=== PATIENT | female | born 1960 | race Caucasian/White ===

== ENCOUNTER 2020-05-22 23:53 | Emergency (ER) | payer OTHER, SELFPAY ==
[2020-05-22 23:55] VITALS: BP 120/76; PULSE 93; RESP 19; TEMP 36.7; O2SAT 100
--- NOTE | 2020-05-23 00:34 | ECG_ITS ---
Measurements Intervals [place] Rate: 89 P: 51 VT: 151 QRS: 54 QRSD: 69 T: 44 QT: 325 QTc: 397 Interpretive Statements SINUS RHYTHM BORDERLINE ST ABNORMALITY- ANT/INF LEADS BASELINE ARTIFACT- I, II, AVR, AVL BORDERLINE ECG Electronically Signed On 05-23-2020 11:50:25 CDT by Memo Barlow D.O.
[2020-05-23] MEDS: KETOROLAC 30 MG/ML VIAL (*BKC) IV PUSH (00:47)
[2020-05-23 01:04] LABS: Basophils Percent Auto 0.4 % (0.2-1.2); Eosinophils Absolute Auto 0.1 K/mm3 (0-0.3); Eosinophils Percent Auto 0.6 % (0-4.4); Hematocrit 36.2 % (37.0-47.0); Hemoglobin 12.2 g/dL (12.0-15.0); Immature Granulocyte Absolute 0.02 K/mm3 (0.00-0.031); Immature Granulocyte Percent A 0.2 % (0-0.5); Lymphocytes Absolute Auto 2.88 K/mm3 (0.9-3.2); Lymphocytes Percent Auto 35.6 % (18.3-44.2); Mean Corpuscular HGB Conc 33.7 g/dl (32-36); Mean Corpuscular Volume 92.1 fl (80-100); Mean Platelet Volume 9.1 fl (7.4-10.4); Monocytes Absolute Auto 0.5 K/mm3 (0.1-0.6); Monocytes Percent Auto 6.4 % (2.6-8.5); Neutrophils Absolute Auto 4.6 K/mm3 (1.3-6.7); Neutrophils Percent Auto 56.8 % (45.5-73.1); Platelet Count Result 254 k/mm3 (150-375); Red Blood Count 3.93 M/mm3 (4.2-5.4); Red Cell Distribution Width 12.2 % (11.5-14.5); White Blood Count 8.1 K/mm3 (4.5-10.0)
[2020-05-23 01:16] LABS: Alanine Aminotransferase 40 U/L (4-35); Albumin Level 4.2 g/dL (3.5-5.1); Alkaline Phosphatase 103 U/L (38-126); Aspartate Amino Transferase 55 U/L (14-36); Bilirubin,Total 0.2 mg/dL (0.2-1.3); Blood Urea Nitrogen 15 mg/dL (7-17); Calcium 9.2 mg/dL (8.4-10.2); Carbon Dioxide 26 mmol/L (22-30); Chloride 107 mmol/L (98-107); Estimated Glomerular Filt Rate > 60; Glucose 125 mg/dL (65-105); Lipase 125 U/L (23-300); Potassium 3.5 mmol/L (3.4-5.0); Sodium 138 mmol/L (137-145)
--- NOTE | 2020-05-23 01:38 | ED.ANXIETY ---
HPI - Anxiety General Chief Complaint: Anxiety Stated Complaint: abd pain/ CP Time Seen by Provider: 05/23/20 00:16 History of Present Illness HPI narrative: Patient is a 59-year-old female who presents ER with abdominal pain and anxiousness. Patient reports she is at work at the [employer] when a work cart struck a metal grate and created a loud banging sound. This caused her to be exceedingly scared and collapsed to the ground. She then was short of breath and anxious afterwards having intermittent weakness and numbness and tingling in her arms. She then became sick and vomited is feeling some epigastric rebound discomfort that is worse with bending forward. Patient had an exaggerated reaction to this loud noise because 1 week ago at work a pipe it exploded that she was 3 feet away from but was fortunate enough to not be injured. Related Data Home Medications Medication Instructions Recorded Confirmed levothyroxine [Synthroid] 25 mcg PO DAILY 05/23/20 zolpidem [Ambien] 05/23/20 Allergies Allergy/AdvReac Type Severity Reaction Status Date / Time No Known Allergies Allergy Verified 05/23/20 00:00 Review of Systems Review of Systems: All systems reviewed & are unremarkable except as noted in HPI and below Constitutional: Constitutional: Denies chills, Reports fatigue and Denies fever(s) ENT: Denies nasal congestion and Denies sore throat Cardiovascular: Cardiovascular: Denies chest pain, Denies rapid heart rate and Denies radiating jaw, neck or arm pain Respiratory: Respiratory: Denies cough, Reports dyspnea and Denies wheezing Gastrointestinal: Gastrointestinal: Reports abdominal pain, Denies diarrhea, Reports nausea and Reports vomiting Psychiatric: Psychiatric: Reports anxiety and Denies depression PMFSH Past Medical History Medical History (Updated 05/23/20 @ 02:50 by Zaire Kennedy MD) Depression Hypothyroidism Presence of pancreatic duct stent Surgical History Surgical History (Updated 05/23/20 @ 01:43 by Zaire Kennedy MD) H/O breast augmentation History of cholecystectomy Family History Family History (Updated 10/28/12 @ 10:10 by DOCTOR UNKNOWN) Other Hypertension Social History Social History Smoking status: Never smoker Alcohol intake: current Gender identity (if verbalized by the patient): Female Exam Narrative: Exam Narrative: GENERAL: Well-appearing, well-nourished, and in no acute distress. HEAD: Normocephalic, atraumatic. ENT: Mucous membranes moist. CHEST: Clear to auscultation. No respiratory distress. HEART: Regular rate and rhythm. Normal peripheral pulses. ABDOMEN: Soft, mild diffuse tenderness, nondistended, normal active bowel sounds. EXTREMITIES: Normal range of motion. No edema. SKIN: Warm, dry, no rash. NEURO: Alert and oriented x3. PSYCH: Normal mood and affect but reports anxiousness. Course Vital Signs Vital signs: Vital Signs Temperature 98.1 F 05/22/20 23:55 Pulse Rate 93 05/22/20 23:55 Respiratory Rate 19 05/22/20 23:55 Blood Pressure 120/76 05/22/20 23:55 Pulse Oximetry 100 05/22/20 23:55 Temperature 98.1 F 05/22/20 23:55 Pulse Rate 84 05/23/20 02:01 Respiratory Rate 17 05/23/20 02:01 Blood Pressure 102/73 05/23/20 02:01 Pulse Oximetry 99 05/23/20 02:01 MDM - Anxiety Lab Data Result diagrams: 05/23/20 00:57 05/23/20 00:57 Labs: Lab Results 05/23/20 05/23/20 Range/Units 00:57 00:57 WBC 8.1 (4.5-10.0) K/mm3 RBC 3.93 L (4.2-5.4) M/mm3 Hgb 12.2 (12.0-15.0) g/dL Hct 36.2 L (37.0-47.0) % MCV 92.1 (80-100) fl MCH 31.0 (26-34) pg MCHC 33.7 (32-36) g/dl RDW 12.2 (11.5-14.5) % Plt Count 254 (150-375) k/mm3 MPV 9.1 (7.4-10.4) fl Immature Gran % (Auto) 0.2 (0-0.5) % Neut % (Auto) 56.8 (45.5-73.1) % Lymph % (Auto) 35.6 (18.3-44.2) % [place] % (Auto) 6.4 (2.6-8.5) % Eos % (Auto) 0.6 (0-4.4
[2020-05-23 02:01] VITALS: BP 102/73; PULSE 84; RESP 17; O2SAT 99
[2020-05-23 03:06] VITALS: BP 99/76; PULSE 78; RESP 13; O2SAT 99
== END 2020-05-23 03:09 | disposition home or self-care (01) ==
PROVIDERS: Emergency Provider Emergency Medicine; PCP Physician Assistant
DX: F41.9 Anxiety disorder, unspecified (principal); S39.011A Strain of muscle, fascia and tendon of abdomen, initial encounter; E03.9 Hypothyroidism, unspecified; F32.9 Major depressive disorder, single episode, unspecified; R94.31 Abnormal electrocardiogram [ECG] [EKG]; W18.39XA Other fall on same level, initial encounter
CPT/HCPCS: 36415; 80053; 83690; 85025; 93005; 96374; 99284; J1885

== ENCOUNTER → 2020-11-02 12:22 | Outpatient (CLI) | payer OTHER, SELFPAY ==
--- NOTE | ~2020-11-02 | MR_ITS ---
EXAMINATION: MR cervical spine wo con DATE: 11/02/2020 13:03 INDICATION: Neck pain. TECHNIQUE: Magnetic resonance imaging (MRI) of the cervical spine was performed without intravenous c ontrast. Sequences included sagittal T2-weighted FSE, sagittal STIR FSE, sagittal T1-weighted FSE, ax ial MERGE, and axial T2-weighted FSE. COMPARISON: Cervical spine radiographs 07/01/2016 FINDINGS: Bone alignment is normal. There are changes of anterior fusion procedure from C4 to C7 with anterior plate and screws. Vertebral body heights and intervertebral disc heights are normal. The sp inal cord signal intensity is normal. The following disc levels are specifically discussed: C2-C3: The disc does not extend beyond the endplate margin. There is no uncovertebral joint osteoarth ritis. There is mild bilateral facet joint osteoarthritis. There is no neural foraminal stenosis. The re is no central canal stenosis. C3-C4: The disc is bulging. There is mild left uncovertebral joint osteoarthritis. There is mild bila teral facet joint osteoarthritis. There is mild left neural foraminal stenosis. There is mild central canal stenosis. C4-C5: There is mild bilateral uncovertebral joint hypertrophy. There is mild right facet joint osteo arthritis. There is no neural foraminal stenosis. There is no central canal stenosis. C5-C6: There is no uncovertebral joint hypertrophy. There is no facet joint osteoarthritis. There is no neural foraminal stenosis. There is no central canal stenosis. C6-C7: There is moderate bilateral uncovertebral joint hypertrophy. There is mild bilateral facet dvaid nt osteoarthritis. There is moderate right and mild left neural foraminal stenosis. There is no centr al canal stenosis. C7-T1: The disc does not extend beyond the endplate margin. There is no uncovertebral joint osteoarth ritis. There is mild bilateral facet joint osteoarthritis. There is mild bilateral neural foraminal s tenosis. There is no central canal stenosis. IMPRESSION: 1. Mild cervical spondylosis. 2. Anterior fusion procedure from C4 to C7. Reviewed, dictated and finalized at location A. [employer] INSPECTOR
== END ==
PROVIDERS: Visit Provider Physician Assistant
DX: M50.20 Other cervical disc displacement, unspecified cervical region (principal); M47.892 Other spondylosis, cervical region; Z98.1 Arthrodesis status
CPT/HCPCS: 72141

== ENCOUNTER → 2021-01-24 12:28 | Outpatient (CLI) | payer OTHER, SELFPAY ==
--- NOTE | ~2021-01-24 | MM_ITS ---
EXAMINATION: MM scrn jose implant BI w nanette HISTORY: Screening mammogram TECHNIQUE: Craniocaudal and mediolateral oblique 3-D tomosynthesis images with implant displacement a nd synthetic 2-D images were generated. Craniocaudal and mediolateral oblique views of the breasts wi thout implant displacement were obtained using full field digital mammography. CAD analysis was submi tted and interpreted. COMPARISON: 11/15/2017 bilateral digital screening mammogram BREAST PARENCHYMAL COMPOSITION: The breasts are heterogeneously dense, which may obscure small masses . FINDINGS: Status post bilateral augmentation mammoplasty. There is no evidence of suspicious mass, calcification, or architectural distortion to suggest malign jak in either breast. There has been no suspicious interval change. IMPRESSION: 1. No mammographic evidence of malignancy. 2. Recommend routine screening mammography in one year. BI-RADS Category 1: Negative Reviewed, dictated and finalized at location A. [employer]OR OF EVENT MANAGEMENT
== END ==
PROVIDERS: PCP Physician Assistant; Visit Provider Physician Assistant
DX: Z12.31 Encounter for screening mammogram for malignant neoplasm of breast (principal)
CPT/HCPCS: 77063; 77067

== ENCOUNTER 2021-03-02 02:18 | Emergency (ER) | payer OTHER, SELFPAY ==
[2021-03-02] VITALS (7 sets, daily range): BP systolic 101–160; BP diastolic 73–92; PULSE 81–99; RESP 12–20; TEMP 36.6–36.9; O2SAT 96–100
--- NOTE | ~2021-03-02 | CT_ITS ---
EXAMINATION: CTA chest PE protocol EXAM DATE: 03/02/2021 05:25 INDICATION: Shortness of breath. TECHNIQUE: Spiral CTA of the chest (pulmonary arteries) was performed with 100 cc Omnipaque 350 intr avenous contrast injection. Images were acquired during the pulmonary arterial phase. Coronal maxi mum intensity projection 3D-reconstructions were created by the technologist on dedicated workstation . Axial, coronal and sagittal reformatted images were reviewed. The dose-length product (DLP) for t his examination was 142.72 mGy-cm. The exposure was tailored according to patient size (auto mA exp osure control), and iterative reconstruction (ASIR) was used as additional dose reduction technique. There is no prior study for comparison. FINDINGS: Pulmonary arteries are well opacified and without intraluminal filling defects. No thora cic aortic dissection. The lungs are clear. There are no pleural or pericardial effusions. Trach eobronchial tree is patent. There is no mediastinal, hilar or axillary lymphadenopathy. There is no pneumothorax. Heart normal in size. No evidence of coronary arterial calcification. There is a 2.5 cm hypodensity in the right liver lobe, segment 7, a nonspecific liver lesion. There is mild t horacic spondylosis without osteoblastic or osteolytic lesions identified. Breast implants. IMPRESSION: 1. No pulmonary emboli or acute cardiopulmonary findings. 2. Incidental nonspecific right liver lobe lesion, could be hemangioma, adenoma, or malignancy. Abdo men MRI without and with contrast is recommended for further evaluation. I discussed the incidental liver lesion, recommendation with emergency room Dr. Love at 03/02/2021 0 7:29 CDT. Reviewed, dictated and finalized at location A. IMPRESSION: 1. No pulmonary emboli or acute cardiopulmonary findings. 2. Incidental nonspecific right liver lobe lesion, could be hemangioma, adenom a, or malignancy. Abdomen MRI without and with contrast is recommended for furt her evaluation. I discussed the incidental liver lesion, recommendation with emergency room Dr. Love at 03/02/2021 07:29 CDT.
--- NOTE | ~2021-03-02 | XR_ITS ---
EXAMINATION: XR chest 1V portable EXAM DATE: 03/02/2021 02:46 INDICATION: Shortness of breath. TECHNIQUE: Portable AP frontal chest x-ray was obtained. Comparison is made to prior examination from 08/03/2012. FINDINGS: The lungs are clear. There are no pleural effusions. The cardiomediastinal silhouette is within normal limits. There is no pneumothorax suspected. Mild thoracic spondylosis. Lower cervical fusion hardware. IMPRESSION: No acute cardiopulmonary findings. Reviewed, dictated and finalized at location A.
--- NOTE | 2021-03-02 02:20 | ECG_ITS ---
Measurements Intervals [place] Rate: 81 P: 75 MS: 137 QRS: 72 QRSD: 76 T: 23 QT: 373 QTc: 435 Interpretive Statements SINUS RHYTHM NONSPECIFIC ST & T-WAVE ABNORMALITY- INF/HIGH LAT LEADS BASELINE ARTIFACT- I, II, III, AVR, AVL, AVF, V1-V6 BORDERLINE ECG Electronically Signed On 03-02-2021 8:34:47 CDT by Memo Barlow D.O.
--- NOTE | 2021-03-02 02:28 | PC.NURSE ---
Pt presents to ED with complaints of sob since for the past 24 hours. Breathing noted to be even and unlabored with O2 saturation of 100% on room air. Pt states she has pressure midsternum. Pt states she has a hx of anxiety and sometimes I get short of breath but this is not the same . Pt denies hx of respiratory diseases and recent illness. Pt noted with dry cough but states she keeps coughing because she can not breathe. Pt alert and oriented x4. Vitals are stable and pt in no obvious distress. Family presented to bedside.
--- NOTE | 2021-03-02 02:31 | PC.NURSE ---
EDMD presented to bedside. Pt states I have three plates in my neck and I feel like my air is getting cut off .
[2021-03-02] MEDS: LORazepam INJ (*CRX) 2 MG/ML VIAL 1 MG IV PUSH (02:44)
[2021-03-02] MEDS: NITROGLYCERIN SL 0.4 MG TABLET SUBLINGUAL (02:45)
[2021-03-02] MEDS: ALBUTEROL SULFATE (*SP) INHALER 2 PUFF INHALATION (02:49)
[2021-03-02 03:14] LABS: Basophils Absolute Auto 0.1 K/mm3 (0.0-0.1); Basophils Percent Auto 0.6 % (0.2-1.2); Eosinophils Absolute Auto 0.2 K/mm3 (0-0.3); Eosinophils Percent Auto 2.3 % (0-4.4); Hematocrit 39.2 % (37.0-47.0); Hemoglobin 13.1 g/dL (12.0-15.0); Immature Granulocyte Absolute 0.02 K/mm3 (0.00-0.031); Immature Granulocyte Percent A 0.2 % (0-0.5); Lymphocytes Absolute Auto 4.02 K/mm3 (0.9-3.2); Lymphocytes Percent Auto 43.1 % (18.3-44.2); Mean Corpuscular HGB Conc 33.4 g/dl (32-36); Mean Corpuscular Hemoglobin 30.5 pg (26-34); Mean Corpuscular Volume 91.4 fl (80-100); Mean Platelet Volume 9.5 fl (7.4-10.4); Monocytes Absolute Auto 0.7 K/mm3 (0.1-0.6); Monocytes Percent Auto 7.2 % (2.6-8.5); Neutrophils Absolute Auto 4.3 K/mm3 (1.3-6.7); Neutrophils Percent Auto 46.6 % (45.5-73.1); Platelet Count Result 296 k/mm3 (150-375); Red Blood Count 4.29 M/mm3 (4.2-5.4); Red Cell Distribution Width 12.1 % (11.5-14.5); White Blood Count 9.3 K/mm3 (4.5-10.0)
--- NOTE | 2021-03-02 03:20 | PC.NURSE ---
Pt noted to be more relaxed since medication administration. Pt now complaining of headache and lightheadedness. Pt states heaviness persists and it is in her throat. Vitals are stable and in pt in non obvious distress.
--- NOTE | 2021-03-02 03:20 | ED.GENADULT ---
HPI - General Adult General Chief complaint: Shortness of Breath/Dyspnea Stated complaint: Shortness of breath Time Seen by Provider: 03/02/21 02:24 History of Present Illness HPI narrative: Patient 60-year-old female presents to emergency department chief complaint of shortness of breath. Patient reports that she has had prior history of a cervical fusion and reports that she also has history of anxiety patient reports tonight she started feeling as though there was a a fullness in her neck and her chest. Patient states it feels as though she cannot get a good deep breath. Patient denies prior history of cardiac disease. Related Data Allergies Allergy/AdvReac Type Severity Reaction Status Date / Time amoxicillin [From Augmentin] Allergy Rash Verified 03/02/21 02:42 clavulanic acid Allergy Rash Verified 03/02/21 02:42 [From Augmentin] Review of Systems Review of Systems: Narrative: A 10 system review of systems was completed on the patient and is negative except for what is stated in the HPI. Nursing and ancillary documentation was reviewed. PMFSH Comments Past medical history significant for anxiety Past surgical history significant for ACDF Social history the patient denies smoking or illicit drug use Exam Narrative: Exam Narrative: GENERAL: Well-appearing, well-nourished, and in no acute distress. HEAD: Normocephalic, atraumatic. EYES: PERRLA and EOMI. ENT: Nares clear, no rhinorrhea or epistaxis. Mucous membranes moist. NECK: Supple. CHEST: Clear to auscultation. No respiratory distress. HEART: Regular rate and rhythm. No murmur heard. Normal peripheral pulses. ABDOMEN: Soft, nontender, nondistended, normal active bowel sounds. EXTREMITIES: Normal range of motion. No edema. SKIN: Warm, dry, no rash. NEURO: No focal deficits. Alert and oriented x3. PSYCH: Normal mood and affect. Course Vital Signs Vital signs: Vital Signs Pulse Rate 83 03/02/21 02:21 Respiratory Rate 14 03/02/21 02:21 Pulse Oximetry 100 03/02/21 02:21 Temperature 36.9 C 03/02/21 02:26 Pulse Rate 87 03/02/21 06:23 Respiratory Rate 20 03/02/21 06:23 Blood Pressure 108/77 03/02/21 06:23 Pulse Oximetry 99 03/02/21 06:23 Medical Decision Making Vital Signs Vital Signs: Vital Signs Pulse Rate 83 03/02/21 02:21 Respiratory Rate 14 03/02/21 02:21 Pulse Oximetry 100 03/02/21 02:21 Temperature 36.9 C 03/02/21 02:26 Pulse Rate 87 03/02/21 06:23 Respiratory Rate 20 03/02/21 06:23 Blood Pressure 108/77 03/02/21 06:23 Pulse Oximetry 99 03/02/21 06:23 Lab Data Result diagrams: 03/02/21 02:41 03/02/21 02:41 Labs: Lab Results 03/02/21 03/02/21 03/02/21 Range/Units 02:41 02:41 02:46 WBC 9.3 (4.5-10.0) K/mm3 RBC 4.29 (4.2-5.4) M/mm3 Hgb 13.1 (12.0-15.0) g/dL Hct 39.2 (37.0-47.0) % MCV 91.4 (80-100) fl MCH 30.5 (26-34) pg MCHC 33.4 (32-36) g/dl RDW 12.1 (11.5-14.5) % Plt Count 296 (150-375) k/mm3 MPV 9.5 (7.4-10.4) fl Immature Gran % (Auto) 0.2 (0-0.5) % Neut % (Auto) 46.6 (45.5-73.1) % Lymph % (Auto) 43.1 (18.3-44.2) % [place] % (Auto) 7.2 (2.6-8.5) % Eos % (Auto) 2.3 (0-4.4) % Baso % (Auto) 0.6 (0.2-1.2) % Lymph # (Auto) 4.02 H (0.9-3.2) K/mm3 [place] # (Auto) 0.7 H (0.1-0.6) K/mm3 Eos # (Auto) 0.2 (0-0.3) K/mm3 Baso # (Auto) 0.1 (0.0-0.1) K/mm3 Abs Immat Gran (auto) 0.02 (0.00-0.031) K/mm3 Absolute Neuts (auto) 4.3 (1.3-6.7) K/mm3 Absolute Nucleated RBC 0.0 (0.0-0.012) K/mm3 Nucleated RBC % 0.0 (0.0-0.2) % PT (11.1-14.7) Seconds INR APTT (22.3-36.8) SECONDS D-Dimer (<0.48) ug/mL Sodium 141 (137-145) mmol/L Potassium 3.2 L (3.4-5.0) mmol/L Chloride 104 (98-107) mmol/L Carbon Dioxide 30 (22-30) mmol/L Anion Gap 7 L (8-16) mmol/L BUN 16 (7-17) mg/dL Creatinine 0.70
--- NOTE | 2021-03-02 03:22 | PC.NURSE ---
Family remains at bedside and pt advised to press call button for assistance.
[2021-03-02 03:25] LABS: INR 0.8; Prothrombin Time 11.7 Seconds (11.1-14.7)
[2021-03-02 03:26] LABS: Lactic Acid Reflex 1.3 mmol/L (0.7-2.1); Partial Thromboplastin Time 26.4 SECONDS (22.3-36.8)
[2021-03-02 03:26] LABS: Anion Gap 7 mmol/L (8-16); Blood Urea Nitrogen 16 mg/dL (7-17); Carbon Dioxide 30 mmol/L (22-30); Chloride 104 mmol/L (98-107); Estimated CRCL calculation 60 ml/min; Estimated Glomerular Filt Rate > 60; Glucose 105 mg/dL (65-105); Potassium 3.2 mmol/L (3.4-5.0); Sodium 141 mmol/L (137-145)
[2021-03-02 03:27] LABS: Alanine Aminotransferase 31 U/L (4-35); Albumin Level 4.5 g/dL (3.5-5.1); Alkaline Phosphatase 96 U/L (38-126); Aspartate Amino Transferase 41 U/L (14-36); Bilirubin,Total 0.3 mg/dL (0.2-1.3); Magnesium 1.8 mg/dL (1.6-2.3)
[2021-03-02 03:35] LABS: D Dimer 0.27 ug/mL (<0.48)
[2021-03-02 03:36] LABS: NT Pro B Type Natriuretic Pept 63 PG/ML (5-100)
[2021-03-02] MEDS: methylPREDNISolone SOD SUCC 125 MG VIAL IV PUSH (03:37)
[2021-03-02 03:39] LABS: Troponin I < 0.012 ng/mL (0.000-0.034)
--- NOTE | 2021-03-02 03:45 | PC.NURSE ---
Pt provided another nitro table and pt states chest pain improved. Pt resting on cart in its lowest position with call button and personal items within reach. Vitals remain stable and pt alert and oriented x4. Family remains a bedside. Pt advised to press call button for assistance.
--- NOTE | 2021-03-02 04:08 | PC.NURSE ---
Pt rates discomfort 4/10 at this time. Pt updated on poc and advised that EDMD will present to bedside for further updates. Pt voices her understanding. Advised to press call button for assistance.
--- NOTE | 2021-03-02 05:08 | PC.NURSE ---
EDMD presented to bedside and updated pt and family on poc. Family member left bedside. Pt resting comfortably and vitals are stable. Pt with call button and personal items within reach. Advised to press call button for assistance.
--- NOTE | 2021-03-02 05:13 | PC.NURSE ---
Pt to ct via cart.
[2021-03-02 05:19] LABS: Troponin I < 0.012 ng/mL (0.000-0.034)
--- NOTE | 2021-03-02 05:22 | PC.NURSE ---
Pt returned from CT. Call button and personal items within reach. Advised to press call button for assistance.
--- NOTE | 2021-03-02 06:24 | PC.NURSE ---
Pt ambulatred with this RN with standby assist. educated pt about changing positions slowly - pt verbalized understanding.
--- NOTE | 2021-03-02 06:35 | PC.NURSE ---
EDMD at bedside to update pt on poc and all questions and concerns addressed. Pt advised to call family for transportation home.
== END 2021-03-02 06:40 | disposition home or self-care (01) ==
PROVIDERS: Emergency Provider Emergency Medicine; PCP Physician Assistant
DX: R06.00 Dyspnea, unspecified (principal); Z98.1 Arthrodesis status; K76.9 Liver disease, unspecified; R94.31 Abnormal electrocardiogram [ECG] [EKG]
CPT/HCPCS: 36415; 71045; 71275; 80048; 80076; 83605; 83735; 83880; 84484; 85025; 85380; 85610; 85730; 93005; 94640; 96374; 96375; 99284; A9270; J2060; J2930; Q9967

== ENCOUNTER → 2021-04-18 12:15 | Outpatient (CLI) | payer OTHER, SELFPAY ==
--- NOTE | ~2021-04-18 | DEXA_ITS ---
Bone Density Report Name: Harini Soria Age: 60 Sex: Female Ethnicity: White Date of : 1960 Indication: postmenopausal; screening for osteoporosis; anorexia or bulimia; hysterectomy; Referring Provider: Dee, Garfield Suarez Study: Bone densitometry was performed. Exam Date: April 18, 2021 Accession number: [id number] Bone Density: Region BMD T-score Z-score Classification AP Spine (L1-L4) 1.018 -0.3 1.0 Normal Femoral Neck (Left) 0.673 -1.6 -0.4 Osteopenia Total Hip (Left) 0.928 -0.1 0.8 Normal Femoral Neck (Right) 0.687 -1.5 -0.2 Osteopenia Total Hip (Right) 0.832 -0.9 0.0 Normal Total Hip Mean 0.880 -0.5 0.4 Normal World Health Organization criteria for BMD impression classify patients as: Normal (T-score at or above -1.0), Osteopenia (T-score between -1.0 and -2.5), or Osteoporosis (T-score at or below -2.5). 10-year Fracture Risk(1): Major Osteoporotic Fracture 6.9% Hip Fracture 0.6% Reported Risk Factors: [place] (), Neck BMD=0.673, BMI=20.8 (1) FRAX(R) Version 3.08. Fracture probability calculated for an untreated patient. Fracture probability may be lower if the patient has received treatment. Clinical Information Provided by Patient: Has used the following medications: Vitamin D, Calcium Has the following medical conditions: Anorexia or Bulimia, Hysterectomy Patient maximum height was 62.5 Menopause Age: 44 No regular weight bearing exercise Does not regularly consume dairy products Drinks caffeinated beverages Onset of menses at age 18 Number of children 5 Impression: The patient has low bone mass, based on the Left Femoral Neck T-score. The patient has an estimated ten-year risk of hip fracture of 0.6% and an estimated ten-year risk of major fracture of 6.9%, based on the WHO FRAX algorithm. Discussion: BONE DENSITY IS LOW AT ONE OR MORE SKELETAL SITES. This patient's lowest T-score is low at one or more skeletal sites. It meets the World Health Organization's (WHO) criteria for ?low bone mass? (T-score between -1.0 and -2.5). The patient's 10-year risk of fracture as calculated by FRAX is less than the threshold where pharmacological therapy is recommended by the National Osteoporosis Foundation (NOF). However, all treatment decisions require clinical judgment and consideration of individual patient factors, including patient preferences, comorbidities, previous drug use, risk factors not captured in the FRAX model (e.g., frailty, falls, vitamin D deficiency, increased bone turnover, interval significant decline in bone density) and possible under or overestimation of fracture risk by FRAX. The patient should follow a healthful lifestyle (good nutrition with adequate calcium and vitamin D, and appropriate weight-bearing exercise). Follow-Up: Consider repeating this
== END ==
PROVIDERS: PCP Physician Assistant; Visit Provider Physician Assistant
DX: Z78.0 Asymptomatic menopausal state (principal); M85.89 Other specified disorders of bone density and structure, multiple sites
CPT/HCPCS: 77080

== ENCOUNTER → 2021-04-23 13:11 | Outpatient (CLI) | payer OTHER, SELFPAY ==
--- NOTE | ~2021-04-23 | MR_ITS ---
EXAMINATION: MR abdomen wo/w con DATE: 04/23/2021 14:13 INDICATION: Liver mass. TECHNIQUE: Magnetic resonance imaging (MRI) of the abdomen was performed without and with 10 mL Multi [place] intravenous contrast. Sequences included coronal T2-weighted FS FSE, coronal and axial FS FIEST A, axial T2-weighted FSE, coronal LAVA-flex, axial STIR FSE, axial DWI, axial dual-echo T1-weighted F SPGR, and axial LAVA. Postcontrast sequences included coronal LAVA-flex and a time course of axial LA VA. COMPARISON: Chest CT 03/02/2021 FINDINGS: There are bilateral breast implants. In right hepatic lobe, there is a 2.5 cm mass with interrupted p eripheral puddling of contrast, consistent with a hemangioma. Pancreas divisum is noted. The gallblad genie is absent. The spleen, adrenal glands, and kidneys are normal. There are no dilated loops of benjamin l. There are no pathologically enlarged lymph nodes. There is no free intraperitoneal fluid. IMPRESSION: 1. 2.5 cm hemangioma in the liver correlating with the CT abnormality. Reviewed, dictated and finalized at location A.
[2021-04-23 13:46] LABS: Estimated Glomerular Filt Rate > 60
== END ==
PROVIDERS: Visit Provider Physician Assistant
DX: K76.9 Liver disease, unspecified (principal)
CPT/HCPCS: 74183; A9577

== ENCOUNTER 2022-07-11 15:11 | Outpatient (CLI) | payer OTHER, SELFPAY ==
--- NOTE | ~2022-07-11 | CT_ITS ---
EXAMINATION: CT abdomen pelvis w con INDICATION: Abdominal pain and nausea TECHNIQUE: Computed tomographic images of the abdomen and pelvis were obtained after the administrati on of 100 cc of Omnipaque 350 intravenous contrast. The dose-length product (DLP) was 253.98 mGy-cm. Automated exposure control and iterative reconstruction technique were employed. COMPARISON: None available FINDINGS: Minimal dependent atelectasis is present in the lung bases. The heart size is normal. Bilat eral breast implants are noted. There is a 2.5 cm hemangioma of the right hepatic lobe. The gallbladd er is surgically absent. There is mild enlargement of the common bile duct and central intrahepatic d ucts which is likely due to post cholecystectomy state. The spleen, pancreas, and adrenal glands are normal. The kidneys are unremarkable. No pathologically enlarged abdominal or pelvic lymph nodes are identified. A moderate volume of colonic stool is present. The appendix is normal. There is mild lumb ar spondylosis. IMPRESSION: 1. Constipation. Reviewed, dictated and finalized at location B. IMPRESSION: 1. Constipation.
== END 2022-07-11 15:12 ==
LOC: MICIMG 15:12
DX: R10.9 Unspecified abdominal pain (principal); K59.00 Constipation, unspecified
CPT/HCPCS: 74177; Q9967

== ENCOUNTER → 2022-09-24 09:55 | Outpatient (CLI) | payer OTHER, SELFPAY ==
--- NOTE | ~2022-09-24 | MR_ITS ---
EXAMINATION: MR cervical spine wo con DATE: 09/24/2022 10:29 INDICATION: Neck pain. Anesthesia and paresthesias of skin. TECHNIQUE: Magnetic resonance imaging (MRI) of the cervical spine was performed without intravenous c ontrast. Sequences included sagittal T2-weighted FSE, sagittal T2-weighted FS FSE, sagittal T1-weight ed FSE, axial MERGE, and axial T2-weighted FSE. COMPARISON: Cervical spine MRI 11/02/2020 FINDINGS: Bone alignment is normal. Vertebral body heights are normal. There are changes of anterior fusion procedure from C4 to C7 with anterior plate and screws and interbody bone graft. Vertebral bod y heights are normal. Disc heights are normal. The spinal cord signal intensity is normal. The follow ing disc levels are specifically discussed: C2-C3: The disc does not extend beyond the endplate margin. There is no uncovertebral joint osteoarth ritis. There is mild bilateral facet joint osteoarthritis. There is no neural foraminal stenosis. The re is no central canal stenosis. C3-C4: There is a central extrusion. There is no uncovertebral joint osteoarthritis. There is mild ri ght and moderate left facet joint osteoarthritis. There is mild left neural foraminal stenosis. There is mild central canal stenosis. C4-C5: There is mild bilateral uncovertebral joint hypertrophy. There is mild bilateral facet joint o steoarthritis. There is mild bilateral neural foraminal stenosis. There is no central canal stenosis. C5-C6: There is mild bilateral uncovertebral joint hypertrophy. There is no facet joint osteoarthriti s. There is no neural foraminal stenosis. There is no central canal stenosis. C6-C7: There is moderate bilateral uncovertebral joint hypertrophy. There is mild bilateral facet david nt osteoarthritis. There is moderate right and mild left neural foraminal stenosis. There is no centr al canal stenosis. C7-T1: The disc does not extend beyond the endplate margin. There is no uncovertebral joint osteoarth ritis. There is moderate right and mild left facet joint osteoarthritis. There is mild bilateral neur al foraminal stenosis. There is no central canal stenosis. IMPRESSION: 1. Mild cervical spondylosis, stable from 01/03/2020. 2. Anterior fusion procedure from C4 to C7. Reviewed, dictated and finalized at location A. RONMENTAL SERVICES SUPERVISOR
== END ==
PROVIDERS: PCP Physician Assistant; Visit Provider Physician Assistant
DX: R20.2 Paresthesia of skin (principal); R20.0 Anesthesia of skin; M54.2 Cervicalgia; M43.02 Spondylolysis, cervical region; Z98.1 Arthrodesis status
CPT/HCPCS: 72141

== ENCOUNTER 2022-10-16 10:15 | Outpatient (CLI) | payer OTHER, SELFPAY ==
--- NOTE | ~2022-10-16 | CT_ITS ---
EXAMINATION: CT cervical spine wo con DATE: 10/16/2022 10:47 INDICATION: Neck pain. TECHNIQUE: Computed tomography (CT) of the cervical spine was performed without intravenous contrast. Automated exposure control and iterative reconstruction technique were employed. The dose-length pro duct was 121.05 mGy-cm. COMPARISON: CT cervical spine 12/29/2006, MRI 09/24/2022 FINDINGS: Bone alignment is normal. There are changes of anterior fusion procedure from C4 to C7 with discectomies, interbody devices, and anterior plate and screws. Vertebral body heights and intervert ebral disc heights are normal. The following disc levels are specifically discussed: C2-C3: There is no uncovertebral joint osteoarthritis. There is mild bilateral facet joint osteoarthr itis. There is no neural foraminal stenosis. There is no central canal stenosis. C3-C4: There is mild left uncovertebral joint osteoarthritis. There is mild left facet joint osteoart hritis. There is no neural foraminal stenosis. There is mild central canal stenosis. C4-C5: There is mild bilateral uncovertebral joint hypertrophy. There is mild left facet joint osteoa rthritis. There is mild bilateral neural foraminal stenosis. There is no central canal stenosis. C5-C6: There is mild bilateral uncovertebral joint hypertrophy. There is mild bilateral facet joint o steoarthritis. There is mild bilateral neural foraminal stenosis. There is no central canal stenosis. C6-C7: There is mild bilateral uncovertebral joint hypertrophy. There is moderate right and mild left facet joint osteoarthritis. There is mild bilateral neural foraminal stenosis. There is no central c anal stenosis. C7-T1: There is no uncovertebral joint osteoarthritis. There is moderate bilateral facet joint osteoa rthritis. There is mild bilateral neural foraminal stenosis. There is no central canal stenosis. IMPRESSION: 1. Mild cervical spondylosis. 2. Anterior fusion procedure from C4 to C7. Reviewed, dictated and finalized at location A.
== END 2022-10-16 10:16 | disposition home or self-care (01) ==
PROVIDERS: PCP Physician Assistant; Visit Provider Neurological Surgery
DX: M43.02 Spondylolysis, cervical region (principal); Z98.1 Arthrodesis status
CPT/HCPCS: 72125

== ENCOUNTER → 2022-10-31 11:07 | Outpatient (CLI) | payer OTHER, SELFPAY ==
--- NOTE | ~2022-10-31 | XR_ITS ---
Cervical Spine: AP, lateral, open-mouth views, with neutral, extension, and flexion positioning. Clinical History: Pain Findings: The normal lordotic curve is maintained. There is anterior fusion hardware extending from C 4 through C7, anterior plate and screws, and associated disc fusion devices. No acute fracture or sub luxation seen. No instability on flexion or extension views. The remaining intervertebral disc spaces are well maintained. Pre-vertebral soft tissues are unremarkable. Impression: Anterior fusion from C4 through C7, as detailed above. No instability evident. No acute abnormality evident. Reviewed, dictated and finalized at location [] WAY ENGINEER Impression: Anterior fusion from C4 through C7, as detailed above. No instability evident. No acute abnormality evident.
== END ==
PROVIDERS: PCP Physician Assistant; Visit Provider Neurological Surgery
DX: M54.2 Cervicalgia (principal); Z98.1 Arthrodesis status
CPT/HCPCS: 72050

== ENCOUNTER 2023-11-27 17:40 | Emergency (ER) | payer MEDICARE, SELFPAY ==
--- NOTE | ~2023-11-27 | XR_ITS ---
EXAMINATION: XR chest 2V DATE: 11/27/2023 18:09 INDICATION: Shortness of breath, chest pain and dizziness TECHNIQUE: PA and lateral views of the chest were obtained. COMPARISON: Chest radiograph CT dated 03/02/21 FINDINGS: The lungs are clear with no focal airspace opacities, pulmonary edema, pleural effusion or pneumothor ax. The cardiomediastinal silhouette is normal. Bilateral breast implants. Cholecystectomy clips the upper abdomen. Instrumented lower cervical anterior spinal fusion. Mild thoracic spondylosis. IMPRESSION: 1. No acute cardiopulmonary disease. Reviewed, dictated and finalized at location A. LSTERY BUNDLER
--- NOTE | 2023-11-27 17:42 | ECG_ITS ---
Measurements Intervals [place] Rate: 75 P: 67 [place]: 166 QRS: 64 QRSD: 91 T: 48 QT: 383 QTc: 430 Interpretive Statements SINUS RHYTHM ST-T WAVE ABNORMALITY IN ANTERIOR LEADS- CONSIDER ISCHEMIA BASELINE ARTIFACT- I, III, AVR, AVL ABNORMAL ECG COMPARED TO ECG 05/22/2020 23:59:11 NO SIGNIFICANT CHANGES Electronically Signed On 11-28-2023 6:38:05 INDUSTRIAL ENG by Memo Barlow D.O.
[2023-11-27 17:58] LABS: Basophils Absolute Auto 0.1 K/mm3 (0.0-0.1); Basophils Percent Auto 0.8 % (0.2-1.2); Eosinophils Percent Auto 0.3 % (0-4.4); Hematocrit 40.3 % (37.0-47.0); Hemoglobin 13.2 g/dL (12.0-15.0); Immature Granulocyte Absolute 0.01 K/mm3 (0.00-0.031); Immature Granulocyte Percent A 0.2 % (0-0.5); Lymphocytes Percent Auto 36.6 % (18.3-44.2); Mean Corpuscular HGB Conc 32.8 g/dl (32-36); Mean Corpuscular Hemoglobin 30.2 pg (26-34); Mean Corpuscular Volume 92.2 fl (80-100); Mean Platelet Volume 8.9 fl (7.4-10.4); Monocytes Absolute Auto 0.5 K/mm3 (0.1-0.6); Monocytes Percent Auto 7.6 % (2.6-8.5); Neutrophils Absolute Auto 3.6 K/mm3 (1.3-6.7); Neutrophils Percent Auto 54.5 % (45.5-73.1); Platelet Count Result 284 k/mm3 (150-375); Red Blood Count 4.37 M/mm3 (4.2-5.4); Red Cell Distribution Width 11.9 % (11.5-14.5); White Blood Count 6.6 K/mm3 (4.5-10.0)
[2023-11-27 18:08] LABS: Alanine Aminotransferase 25 U/L (6-35); Albumin Level 4.6 g/dL (3.5-5.1); Alkaline Phosphatase 69 U/L (38-126); Anion Gap 8 mmol/L (8-16); Aspartate Amino Transferase 34 U/L (14-36); Bilirubin,Total 0.5 mg/dL (0.2-1.3); Blood Urea Nitrogen 12 mg/dL (7-17); Calcium 9.6 mg/dL (8.4-10.2); Carbon Dioxide 30 mmol/L (22-30); Chloride 98 mmol/L (98-107); Estimated Glomerular Filt Rate > 60; Glucose 121 mg/dL (65-110); Lipase 269 U/L (23-300); Potassium 3.9 mmol/L (3.4-5.0); Sodium 136 mmol/L (137-145)
[2023-11-27 18:09] LABS: Partial Thromboplastin Time 27.4 SECONDS (22.3-36.8); Prothrombin Time 13.4 Seconds (11.1-14.7)
[2023-11-27 18:20] LABS: Troponin I < 0.012 ng/mL (0.000-0.034)
[2023-11-27 18:24] VITALS: BP 114/77; PULSE 87; RESP 16; TEMP 36.4; O2SAT 99
[2023-11-27 23:11] VITALS: BP 131/82; PULSE 74; RESP 12; TEMP 36.7; O2SAT 100
[2023-11-27] MEDS: SODIUM CHLORIDE 0.9% IV 1,000 ML 999 ML IV CONT (23:53)
[2023-11-27] MEDS: KETOROLAC 30 MG/ML VIAL (*BKC) IV PUSH (23:54)
[2023-11-28 00:28] LABS: Troponin I < 0.012 ng/mL (0.000-0.034)
[2023-11-28 00:38] LABS: Influenza A QL RT-PCR Negative (Negative); Influenza B QL RT-PCR Negative (Negative); RSV RNA, RT-PCR Negative (Negative); SARS-CoV-2 RNA PCR Negative (Negative)
[2023-11-28 02:39] VITALS: BP 114/62; PULSE 67; RESP 12; O2SAT 99
--- NOTE | 2023-11-28 02:40 | PC.NURSE ---
Pt feeling much better after medications
--- NOTE | 2023-11-28 03:01 | ED.GENADULT ---
HPI - General Adult General Chief complaint: Chest Pain Stated complaint: chest pain, dizziness Time Seen by Provider: 11/27/23 23:22 History of Present Illness HPI narrative: patient is a 63-year-old female who presents emergency department with chief complaint of chest discomfort and shortness of breath. Patient reports since yesterday she has had an uncomfortable feeling in her chest patient states reportable constant also reports a little bit of headache with this. The patient does report that she has had a dry cough patient reports no fever Related Data Home Medications Medication Instructions Recorded Confirmed levothyroxine 25 mcg tablet 25 mcg PO DAILY 05/23/20 10/31/22 (Synthroid) acetaminophen 300 mg-codeine 30 mg 1 tablet PO BID PRN 10/03/22 10/31/22 tablet citalopram 20 mg tablet 20 mg PO DAILY 10/03/22 10/31/22 cyclobenzaprine 10 mg tablet 10 mg PO TID 10/03/22 10/31/22 Allergies Allergy/AdvReac Type Severity Reaction Status Date / Time No Known Allergies Allergy Verified 11/27/23 23:47 Review of Systems Review of Systems: A 10 system review of systems was completed on the patient and is negative except for what is stated in the HPI. Nursing and ancillary documentation was reviewed. PMFSH Past Medical History Medical History Depression Hypothyroidism Presence of pancreatic duct stent Surgical History Surgical History H/O breast augmentation History of cholecystectomy Family History Family History Other Cancer Diabetes mellitus Hypertension Social History Social History Smoking status: Never smoker Alcohol intake: current Gender identity (if verbalized by the patient): Female Exam Narrative: GENERAL: Well-appearing, well-nourished, and in no acute distress. HEAD: Normocephalic, atraumatic. EYES: PERRLA and EOMI. ENT: Nares clear, no rhinorrhea or epistaxis. Mucous membranes moist. NECK: Supple. CHEST: Clear to auscultation. No respiratory distress. HEART: Regular rate and rhythm. No murmur heard. Normal peripheral pulses. ABDOMEN: Soft, nontender, nondistended, normal active bowel sounds. EXTREMITIES: Normal range of motion. No edema. SKIN: Warm, dry, no rash. NEURO: No focal deficits. Alert and oriented x3. PSYCH: Normal mood and affect. Course Vital Signs Vital signs: Vital Signs Temperature 36.4 C 11/27/23 18:24 Pulse Rate 87 11/27/23 18:24 Respiratory Rate 16 11/27/23 18:24 Blood Pressure 114/77 11/27/23 18:24 Pulse Oximetry 99 11/27/23 18:24 Oxygen Delivery Room Air 11/27/23 18:24 Temperature 36.7 C 11/27/23 23:11 Pulse Rate 67 11/28/23 02:39 Respiratory Rate 12 11/28/23 02:39 Blood Pressure 114/62 11/28/23 02:39 Pulse Oximetry 99 11/28/23 02:39 Oxygen Delivery Room Air 11/27/23 23:46 Medical Decision Making [facility] Narrative Medical decision making narrative: differential diagnosis includes pneumonia, ACS, dysrhythmia, viral syndrome chest x-ray showed no focal infiltrate EKG showed no acute ischemic changes troponins were 0 hour 3 hour and 6 hour COVID flu and RSV were negative Vital Signs Vital Signs: Vital Signs Temperature 36.4 C 11/27/23 18:24 Pulse Rate 87 11/27/23 18:24 Respiratory Rate 16 11/27/23 18:24 Blood Pressure 114/77 11/27/23 18:24 Pulse Oximetry 99 11/27/23 18:24 Oxygen Delivery Room Air 11/27/23 18:24 Temperature 36.7 C 11/27/23 23:11 Pulse Rate 67 11/28/23 02:39 Respiratory Rate 12 11/28/23 02:39 Blood Pressure 114/62 11/28/23 02:39 Pulse Oximetry 99 11/28/23 02:39 Oxygen Delivery Room Air 11/27/23 23:46 Lab Data 11/27/23 17:52 11/27/23 17:52
[2023-11-28 03:21] VITALS: BP 105/62; PULSE 86; RESP 18; O2SAT 97
== END 2023-11-28 03:23 | disposition home or self-care (01) ==
PROVIDERS: Student in an Organized Health Care Education/Training Program; Emergency Provider Emergency Medicine; PCP Physician Assistant
DX: R07.89 Other chest pain (principal); Z20.822 Contact with and (suspected) exposure to COVID-19; E03.9 Hypothyroidism, unspecified; Z90.49 Acquired absence of other specified parts of digestive tract
CPT/HCPCS: 36415; 71046; 80053; 83690; 84484; 85025; 85610; 85730; 87637; 93005; 96361; 96374; 99284; J0780; J1200; J1885; J2060; J7030

== ENCOUNTER 2024-06-25 07:35 | Emergency (ER) | payer MEDICARE, SELFPAY ==
--- NOTE | ~2024-06-25 | XR_ITS ---
EXAMINATION: XR chest 2V DATE: 06/25/2024 08:24 INDICATION: Chest pressure. Shortness of breath. TECHNIQUE: Frontal and lateral views of the chest were obtained. COMPARISON: Chest 2 views 11/27/2023 FINDINGS: There is no pneumonia, pleural effusion, or pneumothorax. The heart size is normal. There a re changes of anterior fusion procedure in cervical spine. Surgical clips in the right upper quadrant are likely from cholecystectomy. Breast implants are noted. IMPRESSION: 1. No acute cardiopulmonary disease. Reviewed, dictated and finalized at location A.
--- NOTE | 2024-06-25 07:37 | ECG_ITS ---
Test Date: 2024-06-25 07:42:16 Measurements Intervals [place] Rate: 70 P: 53 [place]: 147 QRS: 37 QRSD: 78 T: 25 QT: 374 QTc: 406 Interpretive Statements SINUS RHYTHM NONSPECIFIC T-WAVE ABNORMALITY BORDERLINE ECG No previous ECG available for comparison Electronically Signed On 06-25-2024 14:59:16 CDT by Sean Martinez M.D.
[2024-06-25 07:38] VITALS: BP 143/95; PULSE 75; RESP 15; TEMP 36.6; O2SAT 96
[2024-06-25 07:42] VITALS: O2SAT 100
--- NOTE | 2024-06-25 07:44 | ED.CHESTPAIN ---
HPI - Chest Pain General Chief Complaint: Chest Pain Stated Complaint: chest pressure, lightheaded Time Seen by Provider: 06/25/24 07:44 Source: patient and EMS Mode of arrival: EMS Limitations: no limitations History of Present Illness HPI narrative: 63 years old white female came to the ED by ambulance complaining of chest pressure, hard to breathe, winded easily, lives alone, started 2 days ago, intermittent, could not sleep last night because of the above symptoms. History of depression and PTSD used to be on sertraline which she quit 2 years ago, started on it again 6 days ago. Patient used be on Ativan as needed. Does not have it anymore. History of hypothyroidism. Patient does not smoke or drink use drugs, Related Data Home Medications Medication Instructions Recorded Confirmed levothyroxine 25 mcg tablet 25 mcg PO DAILY 05/23/20 10/31/22 (Synthroid) acetaminophen 300 mg-codeine 30 mg 1 tablet PO BID PRN 10/03/22 10/31/22 tablet citalopram 20 mg tablet 20 mg PO DAILY 10/03/22 10/31/22 cyclobenzaprine 10 mg tablet 10 mg PO TID 10/03/22 10/31/22 Allergies Allergy/AdvReac Type Severity Reaction Status Date / Time No Known Allergies Allergy Verified 06/25/24 07:45 Review of Systems Review of Systems: All systems reviewed & are unremarkable except as noted in HPI and below PMFSH Past Medical History Medical History Depression Hypothyroidism Presence of pancreatic duct stent Surgical History Surgical History H/O breast augmentation History of cholecystectomy Family History Family History Other Cancer Diabetes mellitus Hypertension Social History Social History Smoking status: Never smoker Alcohol intake: current Gender identity (if verbalized by the patient): Female Exam Narrative: General appearance: Well-developed, well-nourished, anxious Skin: Normal color Head: Normocephalic, nontraumatic Eyes: Clear conjunctiva ENT: Oropharynx normal, ears normal, nose normal Neck: Supple, nontender Chest and respiratory: Airway patent, no respiratory distress, no accessory muscle use Heart: Regular rate/rhythm Abdomen: Soft, nontender, no organomegaly, quiet bowel sounds Vascular: Normal peripheral pulses, normal capillary refill. Musculoskeletal: Normal range of motion, nontender back Neurologic: Alert and oriented ?3, DIRECTORY ASSISTANCE OPERATOR is normal as tested, no gross motor deficit Course Vital Signs Vital signs: Vital Signs Temperature 36.6 C 06/25/24 07:38 Pulse Rate 75 06/25/24 07:38 Respiratory Rate 15 06/25/24 07:38 Blood Pressure 143/95 H 06/25/24 07:38 Pulse Oximetry 96 06/25/24 07:38 Oxygen Delivery Room Air 06/25/24 07:38 Temperature 36.6 C 06/25/24 07:38 Pulse Rate 75 06/25/24 07:38 Respiratory Rate 15 06/25/24 07:38 Blood Pressure 143/95 H 06/25/24 07:38 Pulse Oximetry 100 06/25/24 07:42 Oxygen Delivery Room Air 06/25/24 07:42 MDM - Chest Pain MDM Narrative Medical decision making narrative: Patient presents with anxiety like symptoms Vital signs on arrival showed blood pressure of 143/95 Physical examination showed anxious, restless patient Differential diagnosis include anxiety like symptoms, coronary artery disease less likely, pulmonary embolism less likely, atypical chest pain Blood workup today showed unremarkable abnormality EKG on arrival showed normal sinus rhythm otherwise unremarkable Chest x-ray showed no acute abnormalities.
[2024-06-25] MEDS: ASPIRIN 81 MG CHEWABLE TABLET 324 MG PO (07:46)
[2024-06-25 07:57] LABS: Basophils Absolute Auto 0.1 K/mm3 (0.0-0.1); Basophils Percent Auto 0.8 % (0.2-1.2); Eosinophils Absolute Auto 0.1 K/mm3 (0-0.3); Eosinophils Percent Auto 1.1 % (0-4.4); Hemoglobin 15.6 g/dL (12.0-15.0); Immature Granulocyte Absolute 0.02 K/mm3 (0.00-0.031); Immature Granulocyte Percent A 0.3 % (0-0.5); Lymphocytes Absolute Auto 2.15 K/mm3 (0.9-3.2); Lymphocytes Percent Auto 33.4 % (18.3-44.2); Mean Corpuscular HGB Conc 33.9 g/dl (32-36); Mean Corpuscular Hemoglobin 32.1 pg (26-34); Mean Corpuscular Volume 94.7 fl (80-100); Mean Platelet Volume 9.2 fl (7.4-10.4); Monocytes Absolute Auto 0.6 K/mm3 (0.1-0.6); Monocytes Percent Auto 8.9 % (2.6-8.5); Neutrophils Absolute Auto 3.6 K/mm3 (1.3-6.7); Neutrophils Percent Auto 55.5 % (45.5-73.1); Platelet Count Result 306 k/mm3 (150-375); Red Blood Count 4.86 M/mm3 (4.2-5.4); Red Cell Distribution Width 11.9 % (11.5-14.5); White Blood Count 6.4 K/mm3 (4.5-10.0)
[2024-06-25] MEDS: LORazepam INJ (*CRX) 2 MG/ML VIAL 1 MG IV PUSH (07:57)
[2024-06-25 08:08] LABS: INR 0.9; Prothrombin Time 12.6 Seconds (11.1-14.7)
[2024-06-25 08:09] LABS: Partial Thromboplastin Time 25.8 Seconds (22.3-36.8)
[2024-06-25 08:13] LABS: D Dimer < 0.27 ug/mL (<0.48)
[2024-06-25 09:13] LABS: Alanine Aminotransferase 96 U/L (6-35); Albumin Level 4.7 g/dL (3.5-5.1); Alkaline Phosphatase 86 U/L (38-126); Anion Gap 10 mmol/L (4-12); Aspartate Amino Transferase 37 U/L (14-36); Bilirubin,Total 0.7 mg/dL (0.2-1.3); Blood Urea Nitrogen 14 mg/dL (7-17); Calcium 9.3 mg/dL (8.4-10.2); Carbon Dioxide 29 mmol/L (22-30); Chloride 92 mmol/L (98-107); Estimated CRCL calculation 69 ml/min; Estimated Glomerular Filt Rate > 60; Glucose 103 mg/dL (65-110); Lipase 162 U/L (23-300); Potassium 3.6 mmol/L (3.4-5.0); Sodium 131 mmol/L (137-145)
[2024-06-25 09:48] LABS: Troponin I < 0.012 ng/mL (0.000-0.034)
[2024-06-25 09:59] VITALS: BP 120/78; PULSE 70; RESP 15; TEMP 36.6; O2SAT 98
== END 2024-06-25 10:06 | disposition home or self-care (01) ==
PROVIDERS: Emergency Provider Emergency Medicine; PCP Physician Assistant
DX: R07.89 Other chest pain (principal); E03.9 Hypothyroidism, unspecified; F32.A Depression, unspecified
CPT/HCPCS: 36415; 71046; 80053; 83690; 84443; 84484; 85025; 85380; 85610; 85730; 93005; 96374; 99284; A9270; J2060

== ENCOUNTER 2025-03-25 13:43 | Outpatient (CLI) | payer MEDICARE, SELFPAY ==
--- NOTE | ~2025-03-25 | MR_ITS ---
MRI right knee without contrast Ordering provider: Dora Ramos, SUPERVISOR [employer]KING History: . Knee pain . Comparison: None. FINDINGS: QUADRICEPS, PATELLAR TENDONS AND CRUCIATE LIGAMENTS: Normal in signal and size. No tear. MENISCI: Tear is seen in the posterior horn of the medial meniscus extending to the undersurface. COLLATERAL LIGAMENTS: Normal. PATELLA: Normal position without tilt or subluxation. The medial and lateral patellar retinacula and medial patellofemoral ligament are intact. JOINT SPACE/ARTICULAR CARTILAGE: Irregularity of the cartilage over the medial tibial plateau and med ial femoral condyle cartilage. Joint effusion is noted. BONES: Normal marrow signal. SUPERFICIAL AND DEEP SOFT TISSUE: No Olguin's cyst is seen in the posterior medial knee. Which measur es 1.3 x 3.3 cm.. No bursitis. No muscle strain. Otherwise, normal. 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 Joint effusion. Olguin's cyst.. Reviewed, dictated and finalized at location A.
== END 2025-03-25 13:44 | disposition home or self-care (01) ==
PROVIDERS: PCP Nurse Practitioner; Visit Provider Nurse Practitioner
DX: S83.241A Other tear of medial meniscus, current injury, right knee, initial encounter (principal); X58.XXXA Exposure to other specified factors, initial encounter
CPT/HCPCS: 73721